=== PATIENT | female | born 1950 | race Caucasian/White ===

== ENCOUNTER 2022-03-26 12:59 | Emergency (ER) | payer OTHER, MEDICAID ==
--- NOTE | 2022-03-26 13:16 | NUR ---
WHEN ATTEMPTING TO TRIAGE, PATIENTS FAMILY ASKED IF WE HAVE MRI, NOTIFIED THEM WE DO NOT AND STATED THEY NO LONGER WISH TO BE SEEN PATIENT LEFT WITHOUT BEING SEEN BY DR. PALACIO. NO FURTHER CARE PROVIDED FOR PATIENT.
== END 2022-03-26 13:16 | disposition left against medical advice (07) ==
LOC: MED 12:59
DX: M79.609 Pain in unspecified limb (principal); Z53.21 Procedure and treatment not carried out due to patient leaving prior to being seen by health care provider